=== PATIENT | male | born 1990 | race Caucasian/White ===

== ENCOUNTER 2018-06-25 15:53 | Emergency (ER) | payer SELFPAY ==
--- NOTE | 2018-06-25 16:56 | EDM.PDOC ---
ED HPI GENERAL MEDICAL PROBLEM - General Chief Complaint: Skin Complaint Stated Complaint: RASH ON RIGHT SIDE Time Seen by Provider: 06/25/18 16:09 Source of Information: Reports: Patient History Limitations: Reports: No Limitations - History of Present Illness INITIAL COMMENTS - FREE TEXT/NARRATIVE: The patient presents with a rash to the right flank and right lower abdomen. He noticed this about 4 or 5 days ago but it has gotten worse. He says it is painful. He denies any fever, chills, cough, chest pain or shortness of breath. He has no soaps, lotions or detergents. He does wear bib overalls and he feels that they were rubbing on it. Onset: Gradual Duration: Day(s): (5) Location: Reports: Abdomen, Back Quality: Reports: Burning Severity: Severe Improves with: Reports: None Worsens with: Reports: None Associated Symptoms: Reports: No Other Symptoms Right Lower Abdomen Pain Score (Numeric/FACES): 6 - Related Data Allergies Allergy/AdvReac Type Severity Reaction Status Date / Time No Known Allergies Allergy Verified 06/25/18 16:13 Home Meds: Home Meds Hydrocodone/Acetaminophen [Hydrocodon-Acetaminophen 5-325] 1 - 2 each PO Q6HR PRN #20 tablet 06/25/18 [Rx] valACYclovir [Valtrex] 1,000 mg PO TID #21 tab 06/25/18 [Rx] Past Medical History - Past Health History Medical/Surgical History: Denies Medical/Surgical History Social & Family History - Tobacco Use Smoking Status *Q: Unknown Ever Smoked ED ROS GENERAL - Review of Systems Review Of Systems: See Below Constitutional: Reports: No Symptoms HEENT: Reports: No Symptoms Respiratory: Reports: No Symptoms Cardiovascular: Reports: No Symptoms Endocrine: Reports: No Symptoms GI/Abdominal: Reports: Abdominal Pain (right lower abdomen) : Reports: No Symptoms Musculoskeletal: Reports: Back Pain (right lower back pain) Skin: Reports: Rash (papular rash to the right flank that goes to the right lower abdomen) ED EXAM, SKIN/RASH Exam: See Below Exam Limited By: No Limitations General Appearance: Alert, No Apparent Distress Ears: Normal External Exam Nose: Normal Inspection Head: Atraumatic, Normocephalic Neck: Normal Inspection Respiratory/Chest: No Respiratory Distress, Lungs Clear, Normal Breath Sounds Cardiovascular: Regular Rate, Rhythm, No Edema, No Murmur GI/Abdominal: Soft, No Organomegaly, No Mass, Other (Right lower abdominal rash) Rectal (Males) Exam: Other (Rash to the right lower back that goes to the right lower abdomen) Back Exam: Normal Inspection Extremities: Normal Inspection Neurological: Alert, Oriented, No Motor/Sensory Deficits Skin: Rash (papular rash to the right lower back that extends to the right lower abdomen) Course - Vital Signs Last Recorded V/S: Last Vital Signs Temp 97.6 F 06/25/18 16:10 Pulse 91 06/25/18 16:10 Resp 19 06/25/18 16:10 BP 155/104 H 06/25/18 16:10 Pulse Ox 99 06/25/18 16:10 - Re-Assessments/Exams Free Text/Narrative Re-Assessment/Exam: 06/25/18 17:54 The patient has shingles. I will get him on some valacyclivor and something for pain. Departure - Departure Time of Disposition: 16:55 Disposition: Home, Self-Care 01 Condition: Good Clinical Impression: Shingles Qualifiers: Herpes zoster complications: unspecified herpes zoster complication Qualified Code(s): B02.8 - Zoster with other complications - Discharge Information *PRESCRIPTION DRUG MONITORING PROGRAM REVIEWED*: No *COPY OF PRESCRIPTION DRUG MONITORING REPORT IN PATIENT LETY: No Prescriptions: Hydrocodone/Acetaminophen [Hydrocodon-Acetaminophen 5-325] 1 - 2 each PO Q6HR PRN #20 tablet PRN Reason: Pain valACYclovir [Valtrex] 1,000 mg PO TID #21 tab Instructions: Shingles, [id number] Referrals: PCP,None [Primary Care Provider] - Ana Villela PA [Physician Dumpster Driver] - 1 Week Forms: ED Department Discharge Additional Instructions: Take the valacyclovir 3 times per day for 7 days. Take tylenol or motrin for pain. If that does not help, you can take the hydrocodone. Clean the rash 2 times per day with warm soapy water. You are infectious until these scab over. Stay away from ladies and small children. Please return if you are worse.
== END 2018-06-25 17:14 | disposition home or self-care (01) ==
LOC: JD.ED 15:53
DX: B02.8 Zoster with other complications (principal)
CPT/HCPCS: 99282; 99283